=== PATIENT | female | born 1930 | race Caucasian/White ===

== ENCOUNTER 2016-12-05 08:55 | Day surgery (SDC) | payer MEDICARE ==
[~2016-12-05 08:55] MED LIST: Bupivacaine 0.5% 30 ML SDV ONE
[2016-12-05] MEDS ORDERED: Lactated Ringers 1,000 ML IV SCH (09:30)
[2016-12-05] MEDS ORDERED: Lidocaine 0.5% 50 ML SDV ONE (09:58)
[2016-12-05] MEDS ORDERED: fentaNYL 100 MCG/2 ML SDV ONE (10:24)
[2016-12-05] MEDS ORDERED: Propofol 200 MG/20 ML SDV ONE (10:30)
[2016-12-05] MEDS ORDERED: ceFAZolin 1 GM Vial ONE (10:32)
[2016-12-05] MEDS ORDERED: Povidone-Iodine 10% Soln 118.25 ML Bottle ONE (10:54)
[2016-12-05] MEDS ORDERED: Ondansetron 4 MG/2 ML SDV IVPUSH PRN (11:45)
--- NOTE | 2016-12-05 13:05 | OR ---
DATE OF PROCEDURE: 12/05/2016 PREOPERATIVE DIAGNOSIS: Right long finger trigger finger. POSTOPERATIVE DIAGNOSIS: Right long finger trigger finger. PROCEDURE: Right long finger trigger finger release. ANESTHESIA: [place] block plus conscious sedation. FLUID: Lactated Ringer solution. ESTIMATED BLOOD LOSS: Zero. COMPLICATIONS: None. SPECIMEN: None. DISCHARGE DISPOSITION: Stable to PACU. INDICATION FOR PROCEDURE: The patient was seen preoperatively in the clinic. I had operated on her daughter. She had triggering of the right long finger. Risks and benefits of the procedure were explained to the patient and informed consent was obtained. DETAILS OF PROCEDURE: The patient was seen preoperatively by myself and the Anesthesia staff in the preop holding area where the operative site was marked. She was brought to the operative suite by the Anesthesia staff where a Mikaela block was administered with conscious sedation. The right upper extremity was then prepped and draped in a sterile manner. Time- out was called identifying the correct patient, the correct procedure, the correct site, and the antibiotics had begun within appropriate period of time. Tourniquet had been raised to 250 mmHg for the Mikaela block. The A1 anita was identified. An incision was made approximately 1 cm over the A1 anita of the long finger. A self-retraining retractor was then used and the bipolar electrocautery unit was used for cauterization. The A1 anita was identified and incised throughout its length. The flexor tendon was then pulled out of the wound using a Ragnell. Copious irrigation was then used. I then used a 3-0 Vicryl in horizontal mattress manner twice followed by one simple interrupted Vicryl followed by Betadine followed by sterile dressing. The patient had the tourniquet let down at 20 minutes. The procedure was done in 12. The patient was then brought back to the PACU in a stable condition. Tee Sanches DO /[id number]
[2016-12-05 13:08] VITALS: BP 122/58
--- NOTE | 2016-12-07 02:57 | PCM.PN ---
- General Info Date of Service: 12/06/16 Functional Status: Reports: Pain Controlled, Tolerating Diet, Ambulating, Urinating - Patient Data Vitals - Most Recent: Last Vital Signs Temp 36.2 C 12/05/16 11:20 Pulse 61 12/05/16 13:07 Resp 16 12/05/16 13:07 BP 122/58 L 12/05/16 13:07 Pulse Ox 94 L 12/05/16 11:40 Weight - Most Recent: 246 lb 0.01 oz Med Orders - Current: Current Medications Discontinued Medications Bupivacaine HCl (Marcaine 0.5%) Confirm Administered Dose 30 ml .ROUTE .STK-MED ONE Stop: 12/05/16 07:05 Cefazolin Sodium (Ancef) Confirm Administered Dose 1 gm .ROUTE .STK-MED ONE Stop: 12/05/16 10:33 Fentanyl (Sublimaze) Confirm Administered Dose 100 mcg .ROUTE .STK-MED ONE Stop: 12/05/16 10:25 Heparin Sodium (Porcine) (Heparin Lock Flush 100 Units/Ml) 500 units FLUSH ASDIRECTED PRN PRN Reason: IV Use Last Admin: 12/05/16 13:14 Dose: 500 units Lactated Ringer's (Ringers, Lactated) 1,000 mls @ 0 mls/hr IV ASDIRECTED ADA PRN Reason: KVO Last Admin: 12/05/16 11:34 Dose: 25 mls/hr Lidocaine HCl (Xylocaine-Mpf 0.5%) Confirm Administered Dose 50 ml .ROUTE .STK- MED ONE Stop: 12/05/16 09:59 Ondansetron HCl (Zofran) 4 mg IVPUSH Q4H PRN PRN Reason: Nausea/Vomiting Last Admin: 12/05/16 11:36 Dose: 4 mg Povidone Iodine (Betadine 10% Soln) Confirm Administered Dose 1 ml .ROUTE .STK- MED ONE Stop: 12/05/16 10:55 Last Admin: 12/05/16 10:55 Dose: 3 ml - Exam General: Alert, Oriented
== END 2016-12-05 13:30 | disposition home or self-care (01) ==
LOC: JP.SDS 08:55
PROVIDERS: ATTEND Orthopaedic Surgery
DX: M65.331 Trigger finger, right middle finger (principal); I10 Essential (primary) hypertension; Z79.82 Long term (current) use of aspirin; Z79.899 Other long term (current) drug therapy; E66.9 Obesity, unspecified; Z68.30 Body mass index [BMI] 30.0-30.9, adult; Z98.890 Other specified postprocedural states
CPT/HCPCS: 26055; 36415; 80053; 85027; J0690; J1642; J2405; J2704; J3010; J7120